=== PATIENT | female | born 1960 ===

== ENCOUNTER 2021-04-05 07:37 | Outpatient (CLI) | payer OTHER | END 2021-04-05 07:49 | disposition home or self-care (01) | LOC: TOM 07:37 | PROVIDERS: ATTEND Internal Medicine Gastroenterology | DX: R10.84 Generalized abdominal pain (principal); K56.50 Intestinal adhesions [bands], unspecified as to partial versus complete obstruction ==

== ENCOUNTER → 2022-07-05 | Day surgery (SDC) | payer OTHER ==
[~2022-07-05] VITALS: Ht 157.5 cm; Wt 69.4 kg
[~2022-07-05] MED LIST: CARAFATE1 GM PO; CLONAZEPAM1 MG PO; ESCITALOPRAM OX10 MG PO; GABAPENTIN400 MG PO; PEPCID40 MG PO; PROPRANOLOL HCL10 MG PO; RESTORIL15 MG PO; ZEGERID 40 MG1 EACH PO
== END | disposition home or self-care (01) ==
LOC: ADM 06-30 09:45 → CIR.AMB 05:02
PROVIDERS: ATTEND Colon & Rectal Surgery
DX: R15.9 Full incontinence of feces (principal); Z20.822 Contact with and (suspected) exposure to COVID-19; Z88.0 Allergy status to penicillin; Z88.6 Allergy status to analgesic agent; J45.909 Unspecified asthma, uncomplicated; G43.909 Migraine, unspecified, not intractable, without status migrainosus
CPT/HCPCS: 64581; 64590; 95971; C1778; L8679